=== PATIENT | female | born 1940 | race Caucasian/White ===

== ENCOUNTER → 2021-09-07 09:58 | Outpatient (BNVA) | payer MEDICARE, SELFPAY | PROVIDERS: Visit Provider Internal Medicine | DX: R79.82 Elevated C-reactive protein (CRP) (principal); M25.50 Pain in unspecified joint; Z11.59 Encounter for screening for other viral diseases; Z86.16 Personal history of COVID-19; Z91.81 History of falling; L40.9 Psoriasis, unspecified | CPT/HCPCS: 72100; 72202; 73120; 80053; 82306; 82607; 82784; 83516; 84443; 85025; 85651; 86140; 86160; 86162; 86200; 86235; 86255; 86376; 86431; 86704; 86803; 87340; 99204 ==

== ENCOUNTER 2021-09-07 12:58 | Outpatient (CLI) | payer MEDICARE, SELFPAY ==
--- NOTE | 2021-09-07 13:16 | XRR_ITS ---
PROCEDURE INFORMATION: Exam: XR Lumbosacral Spine Exam date and time: 09/07/2021 1:16 PM Age: 81 years old Clinical indication: Abnormal findings; Abnormal lab test; Other; Elevated c-reactive protein (crp); Additional info: R79.82 - elevated c-reactive protein (crp) TECHNIQUE: Imaging protocol: XR of the lumbosacral spine. Views: 2 or 3 views. COMPARISON: No relevant prior studies available. FINDINGS: Bones/joints: There is generalized osteopenia seen. No acute fracture. Normal alignment. Soft tissues: Unremarkable. XR/XR lumbar spine 2-3V* [id number] IMPRESSION: No acute findings.
--- NOTE | 2021-09-07 13:16 | XRR_ITS ---
PROCEDURE INFORMATION: Exam: XR Left Hand Exam date and time: 09/07/2021 1:16 PM Age: 81 years old Clinical indication: Abnormal findings; Abnormal lab test; Other: Elevated c-reactive protein (crp); Additional info: R79.82 - elevated c-reactive protein (crp) TECHNIQUE: Imaging protocol: XR Left hand. Views: 1 or 2 views. COMPARISON: No relevant prior studies available. FINDINGS: Bones/joints: There is osteoarthritis seen with narrowing of the interphalangeal articulation of multiple digits. No acute bony abnormalities seen. Soft tissues: Unremarkable XR/XR hand LT 2V [id number] IMPRESSION: 1. Osteoarthritis 2. Negative for acute bony abnormality
--- NOTE | 2021-09-07 13:16 | XRR_ITS ---
PROCEDURE INFORMATION: Exam: XR Bilateral Sacroiliac Joints Exam date and time: 09/07/2021 1:16 PM Age: 81 years old Clinical indication: Condition or disease; Other: Psoriasis, unspecified; Additional info: L40.9 - psoriasis, unspecified TECHNIQUE: Imaging protocol: XR Bilateral XR of the sacroiliac joints. Views: 3 or more views. COMPARISON: No relevant prior studies available. FINDINGS: Bones/joints: Normal. No acute fracture. Sacroiliac joints are unremarkable bilaterally. Soft tissues: Normal. XR/XR sacroiliac ts 3V [id number] IMPRESSION: No acute findings. Negative bilateral sacroiliac joints
--- NOTE | 2021-09-07 13:16 | XRR_ITS ---
PROCEDURE INFORMATION: Exam: XR Right Hand Exam date and time: 09/07/2021 1:16 PM Age: 81 years old Clinical indication: Abnormal findings; Abnormal lab test; Other: Elevated c-reactive protein (crp); Additional info: R79.82 - elevated c-reactive protein (crp) TECHNIQUE: Imaging protocol: XR Right hand. Views: 1 or 2 views. COMPARISON: No relevant prior studies available. FINDINGS: Bones/joints: There is osteoarthritis seen with narrowing of the interphalangeal articulation of multiple digits. No acute fractures are seen. Soft tissues: Unremarkable XR/XR hand RT 2V [id number] IMPRESSION: 1. No acute findings. 2. Osteoarthritis
[2021-09-07 14:21] LABS: Basophils # 0.1 10^3/uL (0.0-0.1); Basophils % 0.5 %; Eosinophils % 0.2 %; Hematocrit 51.2 % (37.0-47.0); Hemoglobin 16.4 g/dL (11.5-15.3); Lymphocytes # 1.4 10^3/uL (0.8-4.8); Lymphocytes % 13.8 %; Mean Corpuscular Hemoglobin 29.4 pg (28.0-34.0); Mean Corpuscular Volume 91.9 fl (81-99); Mean Platelet Volume 10.7 fL (7.4-10.4); Monocytes # 0.5 10^3/uL (0.2-0.9); Monocytes % 4.9 %; Neutrophils # 7.91 10^3/uL (1.8-7.7); Neutrophils % 80.3 %; Nucleated Red Blood Cells % 0 %; Platelet Count 275 10^3/cmm (130-400); Red Blood Count 5.57 10^6/uL (4.1-5.3); Red Cell Distribution Width 12.7 % (12.1-15.1); White Blood Count 9.9 10^3/uL (4.0-10.0)
[2021-09-07 14:35] LABS: Erythrocyte Sedimentation Rate 4 mm/hr (0-15)
[2021-09-07 15:03] LABS: Alanine Aminotransferase 8 U/L (0-33); Albumin Level 4.3 g/dL (3.5-5.2); Alkaline Phosphatase 88 IU/L (35-105); Anion Gap 14.1 (5-19); Aspartate Amino Transferase 13 U/L (0-32); Blood Urea Nitrogen 14 mg/dL (8-23); Calcium 8.5 mg/dL (8.5-10.5); Carbon Dioxide 25 mmol/L (22-29); Chloride 104 mmol/L (98-107); Globulin 2.4 g/dL (1.3-4.6); Glucose 140 mg/dL (65-115); Osmolality Calculated 291 mOsm/kg (285-295); Potassium 4.1 mmol/L (3.5-5.1); Sodium 139 mmol/L (136-145); Thyroid Stimulating Hormone 0.74 uIU/mL (0.27-4.20); Total Bilirubin 0.4 mg/dL (0.15-1.2); Total Protein 6.7 g/dL (6.6-8.7)
[2021-09-07 15:42] LABS: 25 Hydroxy Vitamin D 12 ng/mL (30-100); Vitamin B12 311 pg/mL (232-1245)
[2021-09-07 16:25] LABS: Hepatitis B Core AB, Total Non-Reactive (Nonreactive); Hepatitis B Surface Antigen Non-Reactive (Nonreactive); Hepatitis C Virus Antibody Non-Reactive (Nonreactive)
[2021-09-08 14:32] LABS: Cyclic Citrullinated Peptide <16 UNITS
[2021-09-08 14:43] LABS: COMPLEMENT COMPONENT C3C 77 mg/dL (83-193); COMPLEMENT COMPONENT C4C 19 mg/dL (15-57)
[2021-09-09 13:32] LABS: CENTROMERE B ANTIBODY <1.0 NEG AI (<1.0 NEG); JO-1 ANTIBODY <1.0 NEG AI (<1.0 NEG); RNP ANTIBODY <1.0 NEG AI (<1.0 NEG); SCL-70 ANTIBODY <1.0 NEG AI (<1.0 NEG); SJOGREN'S ANTIBODY (SS-A) <1.0 NEG AI (<1.0 NEG); SM ANTIBODY <1.0 NEG AI (<1.0 NEG); SS-B <1.0 NEG AI (<1.0 NEG)
[2021-09-09 14:18] LABS: COMPLEMENT, TOTAL (CH50) >60 U/mL (31-60)
[2021-09-09 15:07] LABS: THYROID PEROXIDASE ANTIBODIES 32 IU/mL (<9)
[2021-09-09 15:52] LABS: ANA SCREEN, IFA NEGATIVE (NEGATIVE)
[2021-09-10 15:33] LABS: Immunoglobulin A 363 mg/dL (70-320)
[2021-09-11 01:37] LABS: Gliadin Ab.IgA <1.0 U/mL; Gliadin Ab.IgG <1.0 U/mL; Tissue Transglutaminase IgA Ab <1.0 U/mL; Tissue transglutaminase Ab.IgG <1.0 U/mL
[2021-09-15 17:03] LABS: DNA AB (DS) CRITHIDIA,IFA NEGATIVE (NEGATIVE)
== END 2021-09-07 12:59 | disposition home or self-care (01) ==
PROVIDERS: Visit Provider Internal Medicine
DX: M25.50 Pain in unspecified joint (principal); R79.82 Elevated C-reactive protein (CRP); L40.9 Psoriasis, unspecified; Z11.59 Encounter for screening for other viral diseases
CPT/HCPCS: 72100; 72202; 73120; 80053; 82306; 82607; 82784; 83516; 84443; 85025; 85651; 86140; 86160; 86162; 86200; 86235; 86255; 86376; 86431; 86704; 86803; 87340

== ENCOUNTER → 2021-09-22 08:31 | Outpatient (BNVA) | payer MEDICARE, SELFPAY | PROVIDERS: Visit Provider Internal Medicine | DX: R79.82 Elevated C-reactive protein (CRP) (principal); M25.50 Pain in unspecified joint; R76.8 Other specified abnormal immunological findings in serum; E55.9 Vitamin D deficiency, unspecified; R51.9 Headache, unspecified; M54.2 Cervicalgia | CPT/HCPCS: 99214 ==